=== PATIENT | male | born 2000 | race Caucasian/White ===

== ENCOUNTER 2020-04-10 17:23 | Emergency (ER) | payer MEDICAID, OTHER ==
[2020-04-10 17:33] VITALS: BP 104/91; PULSE 99
--- NOTE | 2020-04-10 18:23 | EDM.PDOC ---
ED HPI GENERAL MEDICAL PROBLEM - General Chief Complaint: Respiratory Problem Stated Complaint: [id number] AND CHEST PAIN Time Seen by Provider: 04/10/20 17:52 Source of Information: Reports: Patient, RN Notes Reviewed History Limitations: Reports: No Limitations - History of Present Illness INITIAL COMMENTS - FREE TEXT/NARRATIVE: Patient is a 20-year-old male who presents to the ED for the evaluation of asthma-like symptoms, cough, sore throat and chest discomfort. Patient states he does have a history of asthma, and does take an albuterol inhaler. He states he has taken this several times throughout the night and this morning, and this does not seem to be helping his cough much at all. He notes that he coughs so much last night, that he has now developed some chest heaviness or chest discomfort. He is also complaining of a mild sore throat, he has not been able to get any sort of phlegm up with a cough, it was clear last he looked at it. He was complaining of some chest congestion this morning as well. Patient states he has not had a fever, and he is not felt chilled. Patient's O2 sats on time of triage are 99% on room air, temperature is 97.0 F. Respiratory rate is 16, with no obvious respiratory distress noted. Patient notes that his shortness of breath does seem to worsen with exertion. He denies any sort of fatigue or myalgia as well. He notes that he does not have a primary care provider, as he states when he was going to set up with 1, he ended up getting put in detention so could not make the appointment. Chest Pain Score (Numeric/FACES): 5 - Related Data Allergies Allergy/AdvReac Type Severity Reaction Status Date / Time cat dander Allergy Hives Verified 04/10/20 17:33 dog dander Allergy Hives Verified 04/10/20 17:33 Home Meds: Home Meds Fluticasone/Salmeterol [Advair 100-50] 1 puff INH BID #1 diskus 11/06/19 [Rx] Albuterol [Ventolin HFA] 2 puff INH Q4HR PRN #1 inhaler 04/10/20 [Rx] Venlafaxine [Effexor XR] 150 mg PO DAILY 04/10/20 [History] cloNIDine HCL [Clonidine HCl] 1 tab PO DAILY 04/10/20 [History] hydrOXYzine HCL [Atarax] 50 mg PO DAILY 04/10/20 [History] lamoTRIgine [Lamotrigine] 0 mg PO DAILY 04/10/20 [History] methylPREDNISolone [Medrol Dose Pack] 4 mg PO ASDIRECTED #1 dospk 04/10/20 [Rx] Past Medical History Respiratory History: Reports: Asthma Other Respiratory History: hx of collapsed lung- right Psychiatric History: Reports: ADHD, Anxiety, Depression Social & Family History - Family History Family Medical History: Noncontributory - Tobacco Use Smoking Status *Q: Former Smoker Used Tobacco, but Quit: Yes Month/Year Tobacco Last Used: 03/2020 - Caffeine Use Caffeine Use: Reports: Energy Drinks - Recreational Drug Use Recreational Drug Use: No ED ROS GENERAL - Review of Systems Review Of Systems: Comprehensive ROS is negative, except as noted in HPI. ED EXAM, GENERAL - Physical Exam Exam: See Below Exam Limited By: No Limitations General Appearance: Alert, WD/WN, No Apparent Distress Nose: Normal Inspection Throat/Mouth: Normal Inspection, Normal Lips, Normal Teeth, Normal Gums, Normal Voice, No Airway Compromise, Other (bilateral erythematous enlarged tonsils, no exudates noted) Head: Atraumatic, Normocephalic Neck: Normal Inspection, Supple, Full Range of Motion, Tender Lateral (anterior). No: Lymphadenopathy (L), Lymphadenopathy (R) Respiratory/Chest: No Respiratory Distress, No Accessory Muscle Use, Chest Non- Tender, Wheezing (Bilateral lung gomez, this is end expiratory) Cardiovascular: Normal Peripheral Pulses, Regular Rate, Rhythm, No Murmur Extremities: Normal Inspection, Normal Capillary Refill Neurological: Alert, Oriented, Normal Cognition, No Motor/Sensory Deficits Psychiatric: Normal Affect, Normal Mood Skin Exam: Warm, Dry, Intact, Normal Color, No Rash Course - Vital Signs Last Recorded V/S: Last Vital Signs Temp 97 F 04/10/20 17:30 Pulse 99 04/10/20 17:30 Resp 16 04/10/20 17:30 BP 104/91 H 04/10/20 17:30 Pulse Ox 99 04/10/20 17:30 - Orders/Labs/Meds Orders: Active Orders 24 hr Category Date Time Status CORONAVIRUS COVID-19 PCR PHL Stat Lab 04/10/20 18:15 Ordered STREP SCRN A RAPID W CULT CONF [RM] Stat Lab 04/10/20 19:05 Received Labs: Laboratory Tests 04/10/20 04/10/20 Range/Units 18:48 18:48 WBC 12.99 H (4.23-9.07) K/mm3 RBC 6.24 H (4.63-6.08) M/mm3 Hgb 18.7 H (13.7-17.5) gm/dl Hct 55.0 H (40.1-51.0) % MCV 88.1 (79.0-92.2) fl MCH 30.0 (25.7-32.2) pg MCHC 34.0 (32.2-35.5) g/dl RDW Std Deviation 42.5 (35.1-43.9) fL Plt Count 287 (163-337) K/mm3 MPV 10.3 (9.4-12.3) fl Neut % (Auto) 58.5 (34.0-67.9) % Lymph % (Auto) 22.7 (21.8-53.1) % [place] % (Auto) 13.5 H (5.3-12.2) % Eos % (Auto) 4.5 (0.8-7.0) Baso % (Auto) 0.6 (0.1-1.2) % Neut # (Auto) 7.59 H (1.78-5.38) K/mm3 Lymph # (Auto) 2.95 (1.32-3.57) K/mm3 [place] # (Auto) 1.76 H (0.30-0.82) K/mm3 Eos # (Auto) 0.58 H (0.04-0.54) K/mm3 Baso # (Auto) 0.08 (0.01-0.08) K/mm3 Manual Slide Review Abnormal smear Sodium 137 (136-145) mEq/L Potassium 3.9 (3.5-5.1) mEq/L Chloride 100 (98-107) mEq/L Carbon Dioxide 24 (21-32) mEq/L Anion Gap 16.9 H (5-15) BUN 14 (7-18) mg/dL Creatinine 1.1 (0.7-1.3) mg/dL Est Cr Clr Drug Dosing 94.61 mL/min Estimated GFR (MDRD) > 60 (>60) mL/min BUN/Creatinine Ratio 12.7 L (14-18) Glucose 96 (74-106) mg/dL Calcium 9.6 (8.5-10.1) mg/dL Total Bilirubin 1.5 H (0.2-1.0) mg/dL AST 19 (15-37) U/L ALT 26 (16-63) U/L Alkaline Phosphatase 94 (46-116) U/L Total Protein 8.9 H (6.4-8.2) g/dl Albumin 4.7 (3.4-5.0) g/dl Globulin 4.2 gm/dL Albumin/Globulin Ratio 1.1 (1-2) - Re-Assessments/Exams Free Text/Narrative Re-Assessment/Exam: 04/10/20 18:24 Patient presents to the ED for the evaluation of his asthma/cough/sore throat. He will get a strep screen, chest x-ray, CBC, CMP, and a send out coronavirus test, as a do believe it is highly unlikely that he has COVID-19, nonetheless he will be tested. I do suspect that he is having an asthma exacerbation in nature, he will likely be sent home with a refill of his albuterol inhaler, and a Medrol Dosepak for management. 04/10/20 19:52 Patient's labs have started to return, CBC is impressive for mildly elevated white count of 12.99, with no discernible left shift. Metabolic panel is essentially unremarkable. Strep screen is still pending at this time. Chest x- ray also demonstrates no acute abnormalities appreciated. 04/10/20 20:08 Patient's rapid strep screen is negative. Likely his sore throat is from coughing/irritation. Patient will be discharged home with above plan, we will call him with results of the COVID test once we get them. Departure - Departure Time of Disposition: 20:09 Disposition: Home, Self-Care 01 Condition: Good Clinical Impression: Acute asthma exacerbation Qualifiers: Asthma severity: mild Asthma persistence: unspecified Qualified Code(s): J45.901 - Unspecified asthma with (acute) exacerbation - Discharge Information *PRESCRIPTION DRUG MONITORING PROGRAM REVIEWED*: No *COPY OF PRESCRIPTION DRUG MONITORING REPORT IN PATIENT [place]: No Prescriptions: methylPREDNISolone [Medrol Dose Pack] 4 mg PO ASDIRECTED #1 dospk Albuterol [Ventolin HFA] 2 puff INH Q4HR PRN #1 inhaler PRN Reason: Wheezing Instructions: Asthma, Adult, [id number] Referrals: PCP,None [Primary Care Provider] - Forms: ED Department Discharge Additional Instructions: You were seen in the ER today for ongoing and/or worsening respiratory symptoms. Is likely that your symptoms are due to an acute asthma exacerbation, as your lung sounds did have quite a few wheezes. You have been provided with a Medrol Dosepak, and a refill of your albuterol inhaler. Please use this, 1 to 2 puffs at least 4 times a day for the next few days, and then try to taper off to a more as-needed basis. Your chest x-ray showed no signs of pneumonia at this time. Your oxygen levels were great at 99% on room air. At this time we did test you for coronavirus. Swabs are sent from this facility on a daily basis, at 2:30 PM, you should expect up to 3-5 business days for positive or negative results. However you may receive results earlier than this. We are doing our best to call as soon as we get results from the [place] dept. of Health. It is recommended at this time that you go home and self quarantine and try to limit exposure to other as much as possible. Please try to increase your oral fluid intake, and eat multiple small meals throughout the day, to keep yourself healthy. You may take 500 mg Tylenol every hours 6 hours for pain/fever relief. Do not exceed 4000 mg Tylenol in a 24-hour time span. However, running a fever is your body's natural response to illness, and it allows the body to develop antibodies to disease, we are recommending trying to limit the use of Tylenol as much as possible to allow your body's natural immune response. Highly recommend you set up care with a primary care provider of choice, call our clinic at [phone], and set up practice with any family practice provider. Please return to the ER at any time if symptoms change or worsen. Sepsis Event Note (ED) - Evaluation Sepsis Screening Result: No Definite Risk - Focused Exam Vital Signs: Vital Signs Temp Pulse Resp BP Pulse Ox 04/10/20 17:30 97 F 99 16 104/91 H 99 - My Orders Last 24 Hours: My Active Orders 04/10/20 18:15 CORONAVIRUS COVID-19 PCR PHL Stat 04/10/20 19:05 STREP SCRN A RAPID W CULT CONF [RM] Stat - Assessment/Plan Last 24 Hours: My Active Orders 04/10/20 18:15 CORONAVIRUS COVID-19 PCR PHL Stat 04/10/20 19:05 STREP SCRN A RAPID W CULT CONF [RM] Stat
--- NOTE | 2020-04-10 18:57 | CR ---
Chest: Portable view of the chest was obtained. Comparison: No previous chest imaging is available. Heart size and mediastinum are normal. Lungs are clear with no acute parenchymal change. Bony structures are grossly intact. Impression: 1. Nothing acute is appreciated on portable chest x-ray. Diagnostic code #1 This report was dictated in MDT
== END 2020-04-10 20:21 | disposition home or self-care (01) ==
LOC: JD.ED 17:23
DX: J45.901 Unspecified asthma with (acute) exacerbation (principal); F41.9 Anxiety disorder, unspecified; F32.9 Major depressive disorder, single episode, unspecified; F90.9 Attention-deficit hyperactivity disorder, unspecified type; Z20.828 Contact with and (suspected) exposure to other viral communicable diseases; Z87.891 Personal history of nicotine dependence; Z91.048 Other nonmedicinal substance allergy status; Z79.899 Other long term (current) drug therapy
CPT/HCPCS: 36415; 71045; 71045-26; 80053; 85025; 87081; 87430; 99283; 99285-25; U0002

== ENCOUNTER 2020-06-15 15:19 | Emergency (ER) | payer MEDICAID, OTHER | END 2020-06-15 15:45 | disposition left against medical advice (07) | LOC: JD.ED 15:19 | DX: Z53.21 Procedure and treatment not carried out due to patient leaving prior to being seen by health care provider (principal) ==

== ENCOUNTER 2021-02-20 07:15 | Emergency (ER) | payer MEDICAID | END 2021-02-20 07:57 | disposition left against medical advice (07) | LOC: JD.ED 07:15 | DX: R06.00 Dyspnea, unspecified (principal); Z53.21 Procedure and treatment not carried out due to patient leaving prior to being seen by health care provider ==

== ENCOUNTER 2021-11-14 07:09 | Emergency (ER) | payer MEDICAID ==
[2021-11-14 07:27] VITALS: BP 137/75; PULSE 80
[2021-11-14] MEDS ORDERED: Albuterol 6.7 GM Inhaler INH ONE (07:36)
[2021-11-14] MEDS ORDERED: predniSONE 20 MG Tab PO ONE (07:36)
== END 2021-11-14 08:21 | disposition home or self-care (01) ==
LOC: JD.ED 07:09
DX: J45.41 Moderate persistent asthma with (acute) exacerbation (principal); Z88.0 Allergy status to penicillin; Z91.048 Other nonmedicinal substance allergy status; Z79.899 Other long term (current) drug therapy
CPT/HCPCS: 71045; 94640; 99285; A9270; J7512

== ENCOUNTER 2022-03-09 12:04 | Emergency (ER) | payer MEDICAID ==
[2022-03-09 12:28] VITALS: BP 147/84; PULSE 112
[2022-03-09] MEDS ORDERED: Sodium Chloride 0.9% 10 ML Syringe FLUSH PRN ×2 (12:37→12:43)
[2022-03-09] MEDS ORDERED: Iopamidol 612 MG/ML 100 ML Bottle IVPUSH ONE (12:43)
[2022-03-09 13:56] LABS: ESTIMATED GFR > 60 mL/min (>60)
[2022-03-09] MEDS ORDERED: Levofloxacin 750 MG Tab PO ONE (15:30)
[2022-03-09] MEDS ORDERED: metroNIDAZOLE 500 MG Tab PO ONE (15:31)
== END 2022-03-09 16:20 | disposition home or self-care (01) ==
LOC: JD.ED 12:04
DX: K04.7 Periapical abscess without sinus (principal); J45.909 Unspecified asthma, uncomplicated; F17.210 Nicotine dependence, cigarettes, uncomplicated; Z79.899 Other long term (current) drug therapy; Z88.0 Allergy status to penicillin; Z91.09 Other allergy status, other than to drugs and biological substances
CPT/HCPCS: 36415; 70487; 80053; 85025; 86140; 99283; A9270; J3490; Q9967; 99284

== ENCOUNTER 2022-05-13 13:26 | Emergency (ER) | payer MEDICAID ==
[2022-05-13 13:48] VITALS: BP 137/91; PULSE 95
[2022-05-13 15:36] LABS: C. TRACHOMATIS BY PCR DETECTED; N. GONORRHOEAE BY PCR DETECTED
[2022-05-13] MEDS ORDERED: LIDOCAINE 1% IM ONE ×2 (15:48)
[2022-05-13] MEDS ORDERED: CEFTRIAXONE 500 MG IM ONE ×2 (15:48)
[2022-05-13] MEDS ORDERED: Doxycycline Monohydrate 100 MG Cap PO ONE (15:48)
[2022-05-13] MEDS ORDERED: cefTRIAXone 0.5 GM, Lidocaine 1% 2.1 ML IM ONE ×2 (16:01)
== END 2022-05-13 16:14 | disposition home or self-care (01) ==
LOC: JD.ED 13:26
DX: A54.9 Gonococcal infection, unspecified (principal); A74.9 Chlamydial infection, unspecified; F17.210 Nicotine dependence, cigarettes, uncomplicated; Z88.0 Allergy status to penicillin; Z91.09 Other allergy status, other than to drugs and biological substances
CPT/HCPCS: 87491; 87591; 96372; 99283; A9270; J0696

== ENCOUNTER 2022-10-14 12:16 | Emergency (ER) | payer MEDICAID ==
[2022-10-14 14:03] VITALS: BP 110/74; PULSE 70
== END 2022-10-14 14:04 | disposition home or self-care (01) ==
LOC: JD.ED 12:16
DX: J45.909 Unspecified asthma, uncomplicated (principal); Z76.0 Encounter for issue of repeat prescription; F17.210 Nicotine dependence, cigarettes, uncomplicated; Z88.0 Allergy status to penicillin; Z91.09 Other allergy status, other than to drugs and biological substances
CPT/HCPCS: 99281

== ENCOUNTER 2023-04-13 05:47 | Emergency (ER) | payer MEDICAID ==
[2023-04-13] MEDS ORDERED: Albuterol/Ipratropium 3.0-0.5 MG/3 ML Neb Soln NEB ONE (05:57)
[2023-04-13 06:30] VITALS: BP 128/88; PULSE 83
== END 2023-04-13 06:29 | disposition home or self-care (01) ==
LOC: JD.ED 05:47
DX: J45.909 Unspecified asthma, uncomplicated (principal); Z79.899 Other long term (current) drug therapy; Z88.0 Allergy status to penicillin; Z88.1 Allergy status to other antibiotic agents; Z91.048 Other nonmedicinal substance allergy status
CPT/HCPCS: 94640; 99283; 99284; J7620-GY